=== PATIENT | female | born 1935 | race Two or more races ===

== ENCOUNTER 2022-02-06 06:54 | Day surgery (SDC) | payer OTHER ==
[~2022-02-06] VITALS: Ht 160 cm; Wt 77.1 kg
[2022-02-06] VITALS (7 sets, daily range): BP systolic 97–133; BP diastolic 31–52
[~2022-02-06 06:54] MED LIST: ASPI-498 OR; ATOR40TA52 PO; CAR3125T OR; GABA300C10 PO; LEVO88TA4 PO; MECL12.514 PO; OXY5T GT; RANO500T2 PO
[2022-02-06] MEDS ORDERED: IOHEXOL 350 MG/ML 100ML IJ ONE (07:22)
[2022-02-06] MEDS ORDERED: IODIXANOL 320MG/ML 100ML BTL IV ONE (07:22)
[2022-02-06] MEDS ORDERED: LIDOCAINE 2%HCL (LOCAL ANESTH.) INJ 20ML MDV ONE (07:35)
[2022-02-06] MEDS ORDERED: ANGIOMAX 250 MG VIAL IV ONE (07:56)
[2022-02-06] MEDS ORDERED: fentaNYL CITRATE 100 MCG/2 ML VL ONE (07:56)
[2022-02-06] MEDS ORDERED: VERAPAMIL 2.5MG/ML INJ 2ML VIAL IV ONE (07:56)
[2022-02-06] MEDS ORDERED: HEPARIN SODIUM (PORCINE) 5000 UNITS/ML 1ML VIAL ONE (07:56)
[2022-02-06] MEDS ORDERED: SODIUM CHL 0.9% 0 ML ONE (07:57)
[2022-02-06] MEDS ORDERED: MIDAZOLAM HCL 2MG/2ML 2ml VIAL (1mg/ml) ONE (07:57)
== END 2022-02-06 11:35 | disposition home or self-care (01) ==
LOC: CATH 06:54
PROVIDERS: ATTEND Internal Medicine Cardiovascular Disease
DX: I25.118 Atherosclerotic heart disease of native coronary artery with other forms of angina pectoris (principal); I10 Essential (primary) hypertension; E78.5 Hyperlipidemia, unspecified; E03.9 Hypothyroidism, unspecified; E11.42 Type 2 diabetes mellitus with diabetic polyneuropathy; Z20.822 Contact with and (suspected) exposure to COVID-19; Z95.5 Presence of coronary angioplasty implant and graft
CPT/HCPCS: 93458; C1887; C1894; J1644; J2250; J3010; Q9967; U0003; 99152